=== PATIENT | male | born 1960 ===

== ENCOUNTER 2017-07-11 21:36 | Emergency (ER) | payer SELFPAY ==
--- NOTE | 2017-07-11 23:21 | ED ---
Darrin Cai Tecjoon scribbibi for Estrella Ricks MD on 07/11/17 at 2307 . HPI Chest Pain - HPI Summary HPI Summary: This patient is a 57 year old male presenting to [facility] with a chief complaint of chest congestion and pain since 3 days ago. The pain is described as tightness in the chest that comes and goes. The pain is rated 4/10 in severity. Symptoms aggravated by nothing. Symptoms alleviated by nothing. Patient additionally reports a productive cough with yellow phlegm. Patient denies SOB, fever. Patient denies cardiac hx. - History of Current Complaint Chief Complaint: EDUpperRespComplaint Time Seen by Provider: 07/11/17 22:45 Hx Obtained From: Patient Onset/Duration: Started Days Ago, Resolved - since time of exam Timing: Intermittent Initial Severity: Mild Current Severity: None Pain Intensity: 4 Pain Scale Used: 0-10 Numeric Chest Pain Location: Diffuse Aggravating Factor(s): Nothing Alleviating Factor(s): Nothing Associated Signs and Symptoms: Positive: Negative - SOB, fever, Other: - productive cough with yellow phlegm - Allergy/Home Medications Allergies/Adverse Reactions: Allergies Allergy/AdvReac Type Severity Reaction Status Date / Time No Known Allergies Allergy Verified 07/11/17 21:44 PMH/Surg Hx/FS Hx/Imm Hx Previously Healthy: Yes Opthamlomology History: Denies: Hx Legally Blind EENT History: Denies: Hx Deafness Infectious Disease History: No Infectious Disease History: Denies: Traveled Outside the [place] in Last 30 Days - Family History Known Family History: Negative: Cardiac Disease, Hypertension, Diabetes - Social History Occupation: Unemployed Lives: Alone Review of Systems Negative: Fever Positive: Chest Pain Positive: Cough - productive with yellow phlegm. Negative: Shortness Of Breath All Other Systems Reviewed And Are Negative: Yes Physical Exam - Summary Physical Exam Summary: VITAL SIGNS: Reviewed. GENERAL: Patient is a well-developed and nourished male who is lying comfortable in the stretcher. Patient is not in any acute respiratory distress. HEAD AND FACE: No signs of trauma. No ecchymosis, hematomas or skull depressions. No sinus tenderness. EYES: PERRLA, EOMI x 2, No injected conjunctiva, no nystagmus. EARS: Hearing grossly intact. Ear canals and tympanic membranes are within normal limits. MOUTH: Oropharynx within normal limits. NECK: Supple, trachea is midline, no adenopathy, no JVD, no carotid bruit, no c- spine tenderness, neck with full ROM. CHEST: Symmetric, no tenderness at palpation LUNGS: Clear to auscultation bilaterally. No wheezing or crackles. CVS: Regular rate and rhythm, S1 and S2 present, no murmurs or gallops appreciated. ABDOMEN: Soft, non-tender. No signs of distention. No rebound no guarding, and no masses palpated. Bowel sounds are normal. EXTREMITIES: FROM in all major joints, no edema, no cyanosis or clubbing. NEURO: Alert and oriented x 3. No acute neurological deficits. Speech is normal and follows commands. SKIN: Dry and warm Triage Information Reviewed: Yes Vital Signs On Initial Exam: Initial Vitals Temp Pulse Resp BP Pulse Ox 97.6 F 77 16 142/77 98 07/11/17 21:40 07/11/17 21:40 07/11/17 21:40 07/11/17 21:40 07/11/17 21:40 Vital Signs Reviewed: Yes Diagnostics - Vital Signs Vital Signs Temp Pulse Resp BP Pulse Ox 07/11/17 21:40 97.6 F 77 16 142/77 98 - Laboratory Lab Statement: Any lab studies that have been ordered have been reviewed, and results considered in the medical decision making process. Re-Evaluation - Re-Evaluation First Eval Re-Evaluation Time: 23:00 Comment: Patient refuses bloodwork and EKG. Patient states that he knows his sx and that it is stress. I have told patient the potential risks, which include, but are not limited to: heart attack, permanent disability, and . Patient understood and signed waiver. Patient agrees to sign out. Chest Pain Course/Dx - Course Course Of Treatment: This patient is a 57 year old male presenting to [facility] with a chief complaint of chest congestion and pain since 3 days ago. The pain is described as tightness in the chest that comes and goes. The pain is rated 4/ 10 in severity. Patient refuses bloodwork and EKG. Patient states that he knows his sx and that it is stress. I have told patient the potential risks, which include, but are not limited to: heart attack, permanent disability, and . Patient understood and signed waiver. Patient agrees to sign out. Patient is advised to follow up with PCP IN 3 days. RETURN TO EMERGENCY DEPARTMENT FOR ANY NEW OR WORSENING SYMPTOMS. - Diagnoses Provider Diagnoses: Chest pain Discharge - Discharge Plan Condition: Fair Disposition: AGAINST MEDICAL ADVICE Referrals: No Primary Care Phys,NOPCP [Primary Care Provider] - 3 Days Additional Instructions: Patient refuses bloodwork and EKG. Patient states that he knows his sx and that it is stress. I have told patient the potential risks, which include, but are not limited to: heart attack, permanent disability, and . Patient understood and signed waiver. Patient agrees to sign out. Patient is advised to follow up with PCP IN 3 days. RETURN TO EMERGENCY DEPARTMENT FOR ANY NEW OR WORSENING SYMPTOMS The documentation as recorded by the Darrin louie Tecjoon accurately reflects the service I personally performed and the decisions made by me, Estrella Ricks MD.
[2017-07-11 23:33] VITALS: BP 138/77
== END 2017-07-11 23:33 | disposition left against medical advice (07) ==
LOC: ED 21:36
DX: R07.9 Chest pain, unspecified (principal); Z53.21 Procedure and treatment not carried out due to patient leaving prior to being seen by health care provider
CPT/HCPCS: 99282